=== PATIENT | female | born 1970 | race African-American/Black ===

== ENCOUNTER → 2016-11-18 | Emergency (ER) | payer OTHER ==
[~2016-11-18] VITALS: Ht 165.1 cm; Wt 59.0 kg
[~2016-11-18] MED LIST: Bacitracin Oint UD TOPIC ONE; IBUPROFEN400 MG ORAL; IBUPROFEN600 MG ORAL; KEFLEX500 MG ORAL; NKM; TdaP Vaccine 0.5ml Syr IM ONE
[2016-11-18 12:35] VITALS: BP 138/90
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
== END | disposition left against medical advice (07) ==
LOC: EDUNIT# 12:32 → EDBD 12:33 → EMR 13:00
DX: S61.411A Laceration without foreign body of right hand, initial encounter (principal); W50.0XXA Accidental hit or strike by another person, initial encounter; Y93.9 Activity, unspecified; Y99.9 Unspecified external cause status; Z53.21 Procedure and treatment not carried out due to patient leaving prior to being seen by health care provider
CPT/HCPCS: 99284

== ENCOUNTER 2018-12-29 09:47 | Emergency (ER) | payer MEDICAID, OTHER ==
[~2018-12-29] VITALS: Ht 160 cm; Wt 54.4 kg
[~2018-12-29 09:47] MED LIST changes: -Bacitracin Oint UD TOPIC ONE; -TdaP Vaccine 0.5ml Syr IM ONE
[2018-12-29 09:55] VITALS: BP 143/82
--- NOTE | 2018-12-29 09:56 | NUR ---
ED Nurse Note: Pt came in from the street due to runny nose x" a couple of days". Also requested for food. AOx4, VSS. Will cont to monitor.
--- NOTE | 2018-12-29 10:18 | Emergency Room Report ---
History of Present Illness General Chief Complaint: Upper Respiratory Illness Source: Patient Present Illness HPI The patient presents requesting food and a bath. She says she has not been eating because she has not been able to find food. This makes her feel weak. She denies other drugs. She also denies suicidal or homicidal ideation. She had some diarrhea last night but it resolved on its own. She denies any vomiting or abdominal pain. She is not coughing and she denies chest pain. She denies headaches. She is chronic right foot pain from a bunion deformity. This has not changed recently. Allergies: Coded Allergies: NO KNOWN ALLERGIES (Unverified Allergy, Unknown, 05/16/15) Patient History Past Medical History: see triage record Social History: Reports: smoking, drug use - thc; Denies: alcohol use - prior Social History Narrative homeless Now: No Reviewed Nursing Documentation: PMH: Agreed; PSxH: Agreed Nursing Documentation-PMH Past Medical History: No Stated History Physical Exam Vital Signs Date Time Temp Pulse Resp B/P (MAP) Pulse Ox O2 Delivery O2 Flow Rate FiO2 12/29/18 09:51 97.9 76 20 143/82 (102) 98 Room Air Medical Decision Making Homeless Attestation I, The treating physician Dr. Finn, have assessed and agree that patient is medically stable for discharge to an outpatient disposition. Diagnostic Impression: Primary Impression: Homelessness Additional Impression: Cocaine abuse ER Course Patient presents requesting food in a bath and referral for shelters. Based on her vital signs and her complaints and her physical exam there is no medical emergency at this time. Mainly it appears that she needs to have help with her social situation. We will provide her with food. I am uncertain whether we can provide her with a bath. Also she will need social work associate referral. Patient 8. She started escalating. She started asking for referrals to detox centers. Because of this a urinalysis was ordered. bunker worker discussed possible shelters. The patient refused and stated that she wanted to go to [place]. She was escalating but not suicidal or homicidal. She calmed with redirection. She stated that she did not want to wait and wanted to be discharged. There is no evidence of any medical or psychiatric emergency at this time. Urinalysis clear but tox positive for cocaine. The cocaine result came back after the patient had left. Laboratory Tests Test 12/29/18 11:07 Urine Color Pale yellow Urine Appearance Clear Urine pH 6.5 (4.5-8.0) Urine Specific [place] 1.015 (1.005-1.035) Urine Protein Negative (NEGATIVE) Urine Glucose (UA) Negative (NEGATIVE) Urine Ketones Negative (NEGATIVE) Urine Blood Negative (NEGATIVE) Urine Nitrite Negative (NEGATIVE) Urine Bilirubin Negative (NEGATIVE) Urine Urobilinogen Normal MG/DL (0.0-1.0) Urine Leukocyte Esterase Negative (NEGATIVE) Urine Opiates Screen Negative (NEGATIVE) Urine Barbiturates Screen Negative (NEGATIVE) Phencyclidine (PCP) Screen Negative (NEGATIVE) Urine Amphetamines Screen Negative (NEGATIVE) Urine Benzodiazepines Screen Negative (NEGATIVE) Urine Cocaine Screen Positive (NEGATIVE) H Urine Marijuana (THC) Screen Negative (NEGATIVE) Last Vital Signs Date Time Temp Pulse Resp B/P (MAP) Pulse Ox O2 Delivery O2 Flow Rate FiO2 12/29/18 11:40 97.9 76 20 132/75 98 Room Air Status: improved Disposition: HOME, SELF-CARE Condition: Stable Ayush Finn MD Dec 29, 2018 10:18
--- NOTE | 2018-12-29 10:37 | NUR ---
ED Nurse Note: patient was given sandwiches, juices and water.
--- NOTE | 2018-12-29 10:48 | NUR ---
ED Nurse Note: contacted social work coordinator and spoke with Tracey that patient refuses to go to one snf that RN was able to find for her amongs 14 shelters that were contacted, [facility] [place] [phone], spoke with Yani. per Tracey, social work coordinator, she is going to come down to help.
[2018-12-29 11:15] LABS: APPEARANCE,URINE CLEAR; BILIRUBIN, URINE NEGATIVE (NEGATIVE); COLOR,URINE PALE YELLOW; GLUCOSE, URINE (UA) NEGATIVE (NEGATIVE); KETONES,URINE NEGATIVE (NEGATIVE); LEUKOCYTE ESTERASE ,URINE NEGATIVE (NEGATIVE); NITRITE,URINE NEGATIVE (NEGATIVE); PH,URINE 6.5 (4.5-8.0); PROTEIN,URINE NEGATIVE (NEGATIVE); UROBILINOGEN,URINE NORMAL MG/DL (0.0-1.0)
--- NOTE | 2018-12-29 11:36 | NUR ---
ED Nurse Note: WELT INSOLE CHANNELER SPEAKING TO THE PATIENT
[2018-12-29 11:40] VITALS: BP 132/75
--- NOTE | 2018-12-29 11:40 | NUR ---
Social Service Note SW met with patient to assess for resources as patient is noted to be homeless. Patient is alert, oriented and verbally responsive. Patient was requesting permanent housing or a drug treatment program. SW assessed for income, patient states she only receives GR/Food stamps and everything is gone this month. SW discussed that nursing located an available bed at a detention for tomorrow, but at this time patient will need to either go to a tile picker location or wait in line for a detention bed. Patient states she doesn't want detention placement. Patient then inquired about drug rehab. Patient wouldn't disclose drug of choice, frequency or route of administration. SW discussed due to patient only having straight medi-barbara options were limited and may require a wait list. SW discussed and provided the resources of [facility] and the [facility] substance use treatment services. SW also discussed the [facility]. Patient began to get agiated and stated just to computer sciences professor her the resources and didn't want to talk anymore. Patient requested bus tokens and an additional meal. Patient refused to answer any further questions, didn't want to discuss other community resources and kept stating she needed to leave. DEJUAN discussed with primary nurse.
--- NOTE | 2018-12-29 11:48 | NUR ---
Homeless Discharge: Patient is being discharged from medical care. Awake, alert and oriented x3. After care instructions, including referral to community resources were given. Patient verbalized understanding of After care instructions; at this time patient does not request medications, equipment or placement. Patient signed patient consent in the medical record for patient destination upon discharge. All medical devices such as ID band were removed. Patient ambulated out with all personal belongings with steady gait. Patient was seen by the social services designee but was adamant on leaving [facility], patient refused bus tokens. patient ambulated to cafeteria and states that she does not want the extra sandwiches. patient refused to let staff know what the patient's plans were
== END 2018-12-29 11:40 | disposition home or self-care (01) ==
LOC: EMR 10:26
DX: F14.10 Cocaine abuse, uncomplicated (principal); Z59.0 Homelessness; F17.200 Nicotine dependence, unspecified, uncomplicated; M21.611 Bunion of right foot
CPT/HCPCS: 80307; 81003; 99283

== ENCOUNTER 2019-03-16 03:17 | Emergency (ER) | payer MEDICAID ==
[~2019-03-16] VITALS: Ht 162.6 cm; Wt 52.2 kg
[2019-03-16 03:20] VITALS: BP 121/81
--- NOTE | 2019-03-16 03:37 | NUR ---
ED Nurse Note: Patient bibcece RA 861 c/o pain priarily in her right toe, ptients toe is deformed however states that this has been an on going issue for a while. states that she has been walking alot. patient was just seen at [facility] this morning and currently has an armband from it. patient o2 sat at 100%. patient is alert and oriented x4
--- NOTE | 2019-03-16 03:47 | Emergency Room Report ---
History of Present Illness General Chief Complaint: Pain Source: Patient, Medical Record Present Illness HPI This is a 48-year-old male who is homeless. She presents with multiple complaints. She called 911 near [facility]. She was there today. She came in initially complaining of feet pain. She complained of back pain and neck pain. Ultimately, I asked if she is want a place to sleep and she said yes. She is been here several times for the same thing. She has a history of cocaine abuse. No trauma. No fever chills but denies any other complaint. Allergies: Coded Allergies: NO KNOWN ALLERGIES (Unverified Allergy, Unknown, 05/16/15) Patient History Past Medical History: see triage record, old chart reviewed Pertinent Family History: none Social History: Reports: drug use Now: No Immunizations: other Reviewed Nursing Documentation: PMH: Agreed; PSxH: Agreed Nursing Documentation-PMH Past Medical History: No History, Except For Hx Asthma: Yes History Of Psychiatric Problem: Yes Review of Systems Eye: Denies: eye pain, blurred vision ENT: Denies: ear pain, nose congestion, throat swelling Respiratory: Denies: cough, shortness of breath Cardiovascular: Denies: chest pain, palpitations Gastrointestinal: Denies: abdominal pain, diarrhea, nausea, vomiting Musculoskeletal: Denies: back pain, joint pain Skin: Denies: rash Neurological: Denies: headache, numbness Endocrine: Denies: increased thirst, increased urine Hematologic/Lymphatic: Denies: easy bruising All Other Systems: negative except mentioned in HPI Physical Exam Vital Signs Date Time Temp Pulse Resp B/P (MAP) Pulse Ox O2 Delivery O2 Flow Rate FiO2 03/16/19 03:17 97.5 103 18 121/81 (94) 99 Room Air Vitals normal Sp02 EP Interpretation: reviewed, normal General Appearance: well appearing, no apparent distress, alert Head: normocephalic, atraumatic Eyes: bilateral eye PERRL, bilateral eye EOMI ENT: hearing grossly normal, normal pharynx Neck: full range of motion, supple, no meningismus Respiratory: chest non-tender, lungs clear, normal breath sounds Cardiovascular #1: regular rate, rhythm, no murmur Gastrointestinal: normal bowel sounds, non tender, no mass, no organomegaly, no bruit, non-distended Musculoskeletal: back normal, gait/station normal, normal range of motion Psychiatric: mood/affect normal Medical Decision Making Diagnostic Impression: Primary Impression: Cocaine abuse Additional Impression: Pain ER Course Patient with multiple vague complaint. I suspect that she want a place to stay. She has an all been from [facility]. Also from [facility] assisted. No evidence of any trauma to warrant further work-up. Will discharge home in the morning. She says she does not want to go to assisted. She want to go to [place]. Last Vital Signs Date Time Temp Pulse Resp B/P (MAP) Pulse Ox O2 Delivery O2 Flow Rate FiO2 03/16/19 03:20 97.5 103 18 121/81 99 Room Air Status: improved Disposition: HOME, SELF-CARE Condition: Stable Additional Instructions: Follow-up with your doctor in 7 days. Return if worse. Phillip Lind MD Mar 16, 2019 03:47
--- NOTE | 2019-03-16 04:38 | NUR ---
ED Nurse Note: Patient sleeping calmy in bed
[2019-03-16 05:30] VITALS: BP 115/78
--- NOTE | 2019-03-16 05:30 | NUR ---
Homeless Discharge: Patient is being discharged from medical care. Awake, alert and oriented x3. After care instructions, including referral to community resources were given. Patient verbalized understanding of After care instructions; at this time patient does not request medications, equipment or placement. Patient refused to sign patient consent in the medical record for patient destination upon discharge. All medical devices such as IV and ID band were removed. Patient ambulated out with all personal belongings with steady gait.
--- NOTE | 2019-03-16 05:30 | NUR ---
Note meghan in ED - 03/16/19 at 0554 by RENNY Homeless Discharge: Patient is being discharged from medical care. Awake, alert and oriented x3. After care instructions, including referral to community resources were given. Patient verbalized understanding of After care instructions; at this time patient does not request medications, equipment or placement. Patient signed patient consent in the medical record for patient destination upon discharge. All medical devices such as ID band were removed. Patient ambulated out with all personal belongings with steady gait.
[2019-03-16] MEDS ORDERED: IBUPROFEN400 MG ORAL (09:36)
== END 2019-03-16 05:30 | disposition home or self-care (01) ==
LOC: EDBD 03:17 → EMR 04:17
DX: F14.10 Cocaine abuse, uncomplicated (principal); R52 Pain, unspecified; J45.909 Unspecified asthma, uncomplicated; Z59.0 Homelessness
CPT/HCPCS: 99282

== ENCOUNTER 2019-03-16 09:09 | Emergency (ER) | payer MEDICAID ==
[~2019-03-16] VITALS: Ht 160 cm; Wt 54.4 kg
--- NOTE | 2019-03-16 09:31 | NUR ---
ED Nurse Note: PT WALKED IN TO ER TODAY. PT WAS SEEN EARLIER TODAY AND DISCHARGED FROM ER. PT RETURNS WITH SAME COMPLAINT OF RIGHT FOOT PAIN EXACERBATED BY ACTIVITY. NO OBVIOUS INJURY NOTED. PT STATES SHE IS HOMELESS. PT DRESSED IN WEATHER APPROPRIATE CLOTHING. FOOD AND DRINK PROVIDED FOR PT. RESOURCES REGARDING SHELTERS AND FREE HEALTH CLINICS PROVIDED TO PT.
[2019-03-16] MEDS ORDERED: IBUPROFEN400 MG ORAL (09:36)
--- NOTE | 2019-03-16 09:41 | NUR ---
ED Nurse Note: PT SITTING PEACEFULLY IN BED IN NAD. AOX4. PRESCRIPTION AND DISCHARGE PAPERWORK EXPLAINED TO PT. PT VERBALIZES UNDERSTANDING AND ALL QUESTIONS ANSWERED. PRESCRIPTION OFFERED TO BE GIVEN TO PT. PT STATES, "I HAVE INSURANCE. I'LL GET IT MYSELF." PT RE-EDUCATED ON RESOURCES PROVIDED REGARDING MENTAL HEALTH CLINICS, FREE HEALTH CLINICS, AND SHELTERS. PT CONTINUES TO REFUSE TO DISCLOSE WHERE SHE WILL GO AFTER DISCHARGE. WATER PROVIDED FOR PT. PT GIVEN DISCHARGE PAPERWORK AND PRESCRIPTION. PT WALKED OUT OF ER WITH STEADY GAIT AND ALL BELONGINGS. BUS TOKENS PROVIDED TO PT ON HER EARLIER VISIT TO ER TODAY WHICH PT STILL HAS.
[2019-03-16 09:57] VITALS: BP 118/82
--- NOTE | 2019-03-16 17:43 | Emergency Room Report ---
History of Present Illness General Chief Complaint: Lower Extremity Injury Source: Patient Present Illness HPI Patient has a history of bunions on the right toe. Patient also has evidence of a callus patient. Pt states that she would like to have her bunion and callous removed. She denies any trauma. Symptoms noted to be mild. No other modifying factors. No other associated signs and symptoms. No other complaints were noted. Allergies: Coded Allergies: NO KNOWN ALLERGIES (Unverified Allergy, Unknown, 05/16/15) Patient History Past Medical History: psych hx Past Surgical History: none Pertinent Family History: none Social History: Denies: smoking, alcohol use, drug use Last Menstrual Period: na Reviewed Nursing Documentation: PMH: Agreed; PSxH: Agreed Nursing Documentation-PMH Past Medical History: No History, Except For Hx Asthma: Yes History Of Psychiatric Problem: Yes Review of Systems All Other Systems: negative except mentioned in HPI Physical Exam Vital Signs Date Time Temp Pulse Resp B/P (MAP) Pulse Ox O2 Delivery O2 Flow Rate FiO2 03/16/19 09:16 97.9 82 18 121/84 (96) 99 Room Air Sp02 EP Interpretation: reviewed, normal General Appearance: normal inspection, well appearing, no apparent distress, alert, other - Patient appears disheveled. Head: atraumatic Eyes: bilateral eye normal inspection ENT: normal ENT inspection, hearing grossly normal, normal voice Neck: normal inspection, full range of motion, supple, no bony tend Respiratory: normal inspection, lungs clear, normal breath sounds, no respiratory distress, no retraction, no wheezing Cardiovascular #1: regular rate, rhythm, no edema Gastrointestinal: non tender, soft Musculoskeletal: normal inspection, normal range of motion Neurologic: normal inspection, alert, responsive, speech normal Psychiatric: anxious, other - agressive Medical Decision Making Diagnostic Impression: Primary Impression: Bunion of great toe of right foot ER Course Patient presents to the emergency department today requesting bunion removal. Differential diagnosis include infection, bunion, callus. Exam is consistent with bunion and callus formation. I advised the patient that we do not do these repairs or removal in the emergency department. Patient was referred to outpatient family clinic. Patient was advised to follow-up outpatient as needed. Last Vital Signs Date Time Temp Pulse Resp B/P (MAP) Pulse Ox O2 Delivery O2 Flow Rate FiO2 03/16/19 09:57 98.1 76 18 118/82 98 Room Air Status: unchanged Disposition: HOME, SELF-CARE Condition: Stable Scripts Ibuprofen* (MOTRIN*) 400 Mg Tablet 400 MG ORAL Q8H, #20 TAB 0 Refills Prov: Ramo Graf MD 03/16/19 Referrals: NON PHYSICIAN Patient Instructions: Bunion (Hallux Valgus) Ramo Graf MD Mar 16, 2019 17:43
== END 2019-03-16 09:41 | disposition home or self-care (01) ==
LOC: EMR 09:40
DX: M21.611 Bunion of right foot (principal); J45.909 Unspecified asthma, uncomplicated; L84 Corns and callosities
CPT/HCPCS: 99282

== ENCOUNTER 2019-08-03 20:39 | Emergency (ER) | payer MEDICAID ==
[~2019-08-03] VITALS: Ht 160 cm; Wt 49.9 kg
--- NOTE | 2019-08-03 21:00 | NUR ---
ED Nurse Note: pt presents to ED via [facility] [address] with initial complaint of vomiting but she is eating while on the gurney stating that "food helps my arthritis." upon examination, pt states she is no longer feeling nauseated and denies pain anywhere. pt appears to be disheveled and yelling at staff but follows commands.
--- NOTE | 2019-08-03 21:05 | Emergency Room Report ---
History of Present Illness General Chief Complaint: Vomiting Source: Patient, EMS Present Illness HPI Patient is brought in by EMS. A security monitor at the store where she was camped out called them. Allegedly she was vomiting. Currently she is eating food and says that she has to eat. She denies any abdominal pain or vomiting at this time. The patient states that she needs to be hospitalized psychiatrically. She has not been taking her psychiatric medications which include Risperdal 5 mg twice a day and Benadryl for sleep. She denies suicidal or homicidal ideation. No fevers, chills, sore throat, chest pain, palpitations, diarrhea, dysuria, abdominal pain, shortness of breath, joint pain, visual changes, dizziness, headache. Smoker with occasional cough. Allergies: Coded Allergies: NO KNOWN ALLERGIES (Unverified Allergy, Unknown, 05/16/15) Patient History Past Medical History: see triage record Social History: Reports: smoking, drug use Social History Narrative From the streets Reviewed Nursing Documentation: PMH: Agreed; PSxH: Agreed Nursing Documentation-PMH Hx Asthma: Yes History Of Psychiatric Problem: Yes Review of Systems All Other Systems: negative except mentioned in HPI Physical Exam Vital Signs Date Time Temp Pulse Resp B/P (MAP) Pulse Ox O2 Delivery O2 Flow Rate FiO2 08/03/19 20:41 99.1 102 20 146/107 (120) 96 Room Air Sp02 EP Interpretation: reviewed, normal General Appearance: non-toxic, thin, other - Disheveled Head: normocephalic Eyes: bilateral eye PERRL, bilateral eye EOMI, bilateral eye Scleral Injection ENT: moist mucus membranes - poor dentition Neck: full range of motion Respiratory: lungs clear, normal breath sounds Cardiovascular #1: regular rate, rhythm Cardiovascular #2: 2+ radial (L) Gastrointestinal: non tender, soft, scaphoid Genitourinary: no CVA tenderness Musculoskeletal: gait/station normal Neurologic: alert, motor strength/tone normal, plastics 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 Finn, have assessed and agree that patient is medically stable for discharge to an outpatient disposition. Diagnostic Impression: Primary Impression: Cocaine abuse Additional Impression: Vomiting Qualified Codes: R11.10 - Vomiting, unspecified ER Course Patient presents with alleged vomiting by eating at this time. In addition she is requesting psychiatric evaluation. Differential includes gastroenteritis, gastritis, substance abuse, alcohol abuse, electrolyte imbalance, rhabdomyolysis , occult infection, exacerbation of underlying psychiatric illness and noncompliance amongst others. Evaluation with labs. The patient will be treated with Risperdal and Benadryl. Labs with normal WBC and CMP. Troponin and CK normal. + cocaine. Patient ambulated to bathroom for urine with limp. Sleeping. After sleeping and eating patient denies vomiting. Stable for outpatient observation and treatment. Laboratory Tests Test 08/03/19 21:18 08/04/19 00:18 White Blood Count 5.3 K/UL (4.8-10.8) Red Blood Count 3.85 M/UL (4.20-5.40) L Hemoglobin 11.4 G/DL (12.0-16.0) L Hematocrit 34.0 % (37.0-47.0) L Mean Corpuscular Volume 88 FL (80-99) Mean Corpuscular Hemoglobin 29.5 PG (27.0-31.0) Mean Corpuscular Hemoglobin Concent 33.5 G/DL (32.0-36.0) Red Cell Distribution Width 14.4 % (11.6-14.8) Platelet Count 413 K/UL (150-450) Mean Platelet Volume 5.6 FL (6.5-10.1) L Neutrophils (%) (Auto) 64.3 % (45.0-75.0) Lymphocytes (%) (Auto) 24.9 % (20.0-45.0) Monocytes (%) (Auto) 8.2 % (1.0-10.0) Eosinophils (%) (Auto) 1.5 % (0.0-3.0) Basophils (%) (Auto) 1.1 % (0.0-2.0) Sodium Level 144 MMOL/L (136-145) Potassium Level 4.0 MMOL/L (3.5-5.1) Chloride Level 107 MMOL/L (98-107) Carbon Dioxide Level 30 MMOL/L (21-32) Anion Gap 8 mmol/L (5-15) Blood Urea Nitrogen 19 mg/dL (7-18) H Creatinine 1.0 MG/DL (0.55-1.30) Estimate Glomerular Filtration Rate > 60 mL/min (>60) Glucose Level 126 MG/DL (74-106) H Calcium Level 8.4 MG/DL (8.5-10.1) L Total Bilirubin 0.3 MG/DL (0.2-1.0) Aspartate Amino Transferase (AST) 21 U/L (15-37) Alanine Aminotransferase (ALT) 23 U/L (12-78) Alkaline Phosphatase 106 U/L (46-116) Total Creatine Kinase 183 U/L (26-308) Troponin I 0.012 ng/mL (0.000-0.056) Total Protein 6.9 G/DL (6.4-8.2) Albumin 2.9 G/DL (3.4-5.0) L Globulin 4.0 g/dL Albumin/Globulin Ratio 0.7 (1.0-2.7) L Salicylates Level 0.9 ug/mL (2.8-20) L Acetaminophen Level < 2 MCG/ML (10-30) L Serum Alcohol < 3 mg/dL Urine Opiates Screen Negative (NEGATIVE) Urine Barbiturates Screen Negative (NEGATIVE) Phencyclidine (PCP) Screen Negative (NEGATIVE) Urine Amphetamines Screen Negative (NEGATIVE) Urine Benzodiazepines Screen Negative (NEGATIVE) Urine Cocaine Screen Positive (NEGATIVE) H Urine Marijuana (THC) Screen Negative (NEGATIVE) Last Vital Signs Date Time Temp Pulse Resp B/P (MAP) Pulse Ox O2 Delivery O2 Flow Rate FiO2 08/04/19 05:25 100 20 145/100 97 Room Air 08/04/19 01:00 99.1 Status: improved Disposition: HOME, SELF-CARE Condition: Improved Scripts Diphenhydramine Hcl* (BENADRYL*) 25 Mg Capsule 25 MG ORAL QHS PRN for Itching, #20 CAP 1 Refill Prov: Ayush Finn MD 08/04/19 Risperidone* (RISPERDAL*) 1 Mg Tablet 1 MG PO BID, #30 TAB 1 Refill Prov: Ayush Finn MD 08/04/19 Ayush Finn MD Aug 03, 2019 21:05
[2019-08-03 21:33] LABS: BASOPHILS % (AUTO) 1.1 % (0.0-2.0); EOSINOPHILS % (AUTO) 1.5 % (0.0-3.0); HEMOGLOBIN 11.4 G/DL (12.0-16.0); LYMPHOCYTES % (AUTO) 24.9 % (20.0-45.0); MEAN CORPUSCULAR VOLUME 88 FL (80-99); MONOCYTES % (AUTO) 8.2 % (1.0-10.0); NEUTROPHILS % (AUTO) 64.3 % (45.0-75.0); PLATELET COUNT 413 K/UL (150-450); RED BLOOD COUNT 3.85 M/UL (4.20-5.40); RED CELL DISTRIBUTION WIDTH 14.4 % (11.6-14.8); WHITE BLOOD COUNT 5.3 K/UL (4.8-10.8)
[2019-08-03 21:37] VITALS: BP 146/107
--- NOTE | 2019-08-03 21:45 | NUR ---
ED Nurse Note: pt is insisting on taking IV out, refusing to provide urine. ERMD notified
[2019-08-03 21:50] LABS: ANION GAP 8 mmol/L (5-15); BLOOD UREA NITROGEN 19 mg/dL (7-18); CALCIUM 8.4 MG/DL (8.5-10.1); CARBON DIOXIDE 30 MMOL/L (21-32); CHLORIDE 107 MMOL/L (98-107); SODIUM 144 MMOL/L (136-145)
[2019-08-03 21:55] LABS: ALANINE AMINOTRANSFERASE 23 U/L (12-78); ALBUMIN 2.9 G/DL (3.4-5.0); ALBUMIN/GLOBULIN RATIO 0.7 (1.0-2.7); ALKALINE PHOSPHATASE 106 U/L (46-116); ASPARTATE AMINO TRANSFERASE 21 U/L (15-37); BILIRUBIN,TOTAL 0.3 MG/DL (0.2-1.0); CREATINE KINASE 183 U/L (26-308)
--- NOTE | 2019-08-04 00:20 | NUR ---
ED Nurse Note: urine specimen obtained and sent down to lab.
[2019-08-04 01:00] VITALS: BP 145/100
--- NOTE | 2019-08-04 03:00 | NUR ---
ED Nurse Note: pt is sleeping in bed. has thrown all her garbage and waste onto the floor, belongings dispersed about the room. will continue to monitor and wait for orders from ERMD
[2019-08-04] MEDS ORDERED: RISPERDAL1 MG PO (03:54)
[2019-08-04] MEDS ORDERED: BENADRYL25 MG ORAL (03:54)
[2019-08-04 05:25] VITALS: BP 145/100
--- NOTE | 2019-08-04 05:25 | NUR ---
ER DISCHARGE NOTE: Patient is cleared to be discharged per ERMD, pt is aox4, on room air, with stable vital signs. pt was given dc instructions, pt was able to verbalize understanding, pt id band removed without complications. pt is able to ambulate with steady gait. pt took all belongings.
== END 2019-08-04 05:25 | disposition home or self-care (01) ==
LOC: EDUNIT# 20:39 → EDSEX 20:39 → EDBD 20:39 → EMR 21:20
DX: F14.10 Cocaine abuse, uncomplicated (principal); R11.10 Vomiting, unspecified; F17.200 Nicotine dependence, unspecified, uncomplicated
CPT/HCPCS: 36415; 80053; 80307; 82550; 84484; 85025; G0480; G0481; Z7502; 99283

== ENCOUNTER 2019-08-30 06:30 | Emergency (ER) | payer MEDICAID ==
[~2019-08-30] VITALS: Ht 157.5 cm; Wt 49.9 kg
[~2019-08-30 06:30] MED LIST changes: +BENADRYL25 MG ORAL; +RISPERDAL1 MG PO
--- NOTE | 2019-08-30 06:32 | NUR ---
ED Nurse Note: pt presents to ED via EMS arrival RA 26 from [employer]. per EMS, pt states that she fell at [employer] today and hit her L knee. 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
--- NOTE | 2019-08-30 06:33 | NUR ---
ED Nurse Note: upon inspection, the skin is intact and there are no obvious deformities
--- NOTE | 2019-08-30 06:36 | Emergency Room Report ---
History of Present Illness General Chief Complaint: Lower Extremity Injury Source: Patient, EMS Present Illness HPI Disclaimer: Please note that this report is being documented using DRAGON technology. This can lead to erroneous entry secondary to incorrect interpretation by the dictating instrument. HPI: 48-year-old female presents by EMS for evaluation for left knee pain after an injury. The patient states she was walking in the left knee buckled as it usually does when she lost her balance and fell forward onto her patella. There is no skin breakdown. There is no head injury or other injury reported. Stated hurts over the lateral aspect. Denies significant swelling. Denies pain radiating down the leg, weakness or sensory changes. Has not tried to ambulate. PMH: Schizophrenia, substance abuse PSH: Bunionectomy Allergies: None reported Social Hx: Substance abuse history, tobacco use Allergies: Coded Allergies: NO KNOWN ALLERGIES (Unverified Allergy, Unknown, 05/16/15) Patient History Now: No Nursing Documentation-PMH Hx Asthma: Yes Review of Systems All Other Systems: negative except mentioned in HPI Physical Exam Vital Signs Date Time Temp Pulse Resp B/P (MAP) Pulse Ox O2 Delivery O2 Flow Rate FiO2 08/30/19 06:29 98.8 80 14 140/90 (107) 98 Room Air General: Awake and alert, no acute distress HEENT: NC/AT. EOMI. Resp: Normal work of breathing Skin: Intact. No abrasions, laceration or rash over the exposed skin MSK: Normal tone and bulk. Moving all extremities. No obvious deformity. Left patella is anatomic position. No tenderness over the patella. No laxity on varus or valgus testing or with AP stress. Mild tenderness over the lateral aspect of the knee without bony deformity. Skin is intact. Able to extend, flex and bear weight. Neuro: Awake and alert. Mentating appropriately Medical Decision Making Diagnostic Impression: Primary Impression: Contusion of left knee ER Course This a 48-year-old female presenting for evaluation of left knee pain after fall earlier today. There is no head injury. There is some tenderness over the lateral aspect of the knee without obvious effusion, edema or bony injury. Will order x-ray and treat with NSAIDs. Other X-Ray Diagnostic Results Other X-Ray Diagnostic Results : X-Ray ordered: Left knee # of Views/Limited Vs Complete: 3 View Indication: Pain EP Interpretation: Yes Interpretation: no dislocation, no soft tissue swelling, no fractures Impression: No acute disease PA Scribe Text Preliminary Findings Only See Final Report For Complete Findings FILM LEFT KNEE: Joint space narrowing in all 3 compartments with marginal osteophytes. No acute fracture or dislocation. Radiologist: Ayush Petit M.D. Study ready at 06:53 and initial results transmitted at 07:20 Reevaluation Time: 07:29 Last Vital Signs Date Time Temp Pulse Resp B/P (MAP) Pulse Ox O2 Delivery O2 Flow Rate FiO2 08/30/19 06:29 98.8 80 14 140/90 (107) 98 Room Air Reevaluation Impression X-ray of the knee showed possible lucency and cortical irregularity over the lateral aspect however interpretation by radiologist finds no acute fracture. They know must multiple osteophytes and some degenerative disease. Patient's knee was placed in an Emeka bandage for comfort and stability. Prescribed Motrin and follow-up with orthopedic surgery as needed as well as PMD/clinic. Patient can return with any new or worsening symptoms. Upon discharge she requested to speak with social work. We will call them for the patient. She may wait in the emergency department until they arrive. Disposition: HOME, SELF-CARE Condition: Stable Scripts Ibuprofen* (MOTRIN*) 600 Mg Tablet 600 MG ORAL Q8H PRN for For Pain, #30 TAB 0 Refills Prov: Wesley Rey MD 08/30/19 Wesley Rey MD Aug 30, 2019 06:36
[2019-08-30] MEDS ORDERED: IBUPROFEN600 MG ORAL (06:39)
--- NOTE | 2019-08-30 07:21 | Diagnostic Imaging Report ---
Indication: Left knee trauma, twisted left knee crossing street Technique: 3 views of the left knee Comparison: None Findings: No acute fractures. No dislocations. There is narrowing of the lateral joint compartment. There is also narrowing of the patellofemoral joint compartment. No definite effusion. Impression: No acute process This agrees with the preliminary interpretation provided overnight by [facility].
--- NOTE | 2019-08-30 07:35 | NUR ---
ED Nurse Note: Dr Rey notified that pt wants to wait for social media developer and that she will arrive around 0900. states ok to have pt in ER to wait.
[2019-08-30 09:37] VITALS: BP 132/78
--- NOTE | 2019-08-30 10:07 | NUR ---
Social Work This Sw received a consult in the ED, due to patient requesting to speak with a Computer Recycling Worker. This SW met with patient who continues to sleep, refusing to sit up and speak with this SW. Homeless and substance abuse resources provided; nursing to arrange transportation as needed. ED Nursing informed.
[2019-08-30 10:11] VITALS: BP 125/72
--- NOTE | 2019-08-30 10:11 | NUR ---
ER DISCHARGE NOTE: Patient is cleared to be discharged per ERMD, pt is aox4, on room air, with stable vital signs. pt was given dc and prescription instructions, pt was able to verbalize understanding, pt id band removed. pt is able to ambulate with steady gait. pt took all belongings. Pt offered to get meds from [facility] but refused. Homeless log and mini cog completed.
== END 2019-08-30 10:11 | disposition home or self-care (01) ==
LOC: EDBD 06:30 → EMR 06:43
DX: S80.02XA Contusion of left knee, initial encounter (principal); W19.XXXA Unspecified fall, initial encounter; Y92.9 Unspecified place or not applicable
CPT/HCPCS: 73562; Z7502; 99283

== ENCOUNTER 2019-12-13 23:30 | Emergency (ER) | payer MEDICAID ==
[~2019-12-13] VITALS: Ht 157.5 cm; Wt 49.9 kg
--- NOTE | 2019-12-13 23:47 | NUR ---
ED Nurse Note: Pt brought in by RA Handy from [facility], pt lives in her car, called 911 due to abdominal pain. PT is A&Ox2, VSS, resistive to care. will continue to monitor
[2019-12-13 23:49] VITALS: BP 142/94
--- NOTE | 2019-12-13 23:57 | Emergency Room Report ---
History of Present Illness General Chief Complaint: Abdominal Pain Source: Patient, Medical Record Present Illness HPI Is a 49-year-old female who is homeless with a history of cocaine abuse. She presents with chief complaint abdominal pain with nausea vomiting and diarrhea. Onset for last couple days. Also with urinary frequency. Pain is cramping in nature. Worse with eating. Better with rest. No fever chills. No blood in her vomitus or diarrhea. Denies any other complaint. Allergies: Coded Allergies: NO KNOWN ALLERGIES (Unverified Allergy, Unknown, 05/16/15) COVID-19 Screening Contact w/high risk pt: No Recent Travel to affected area: No Experienced COVID-19 symptoms?: No COVID-19 Testing performed FIGURE SKATER: No Patient History Past Medical History: see triage record, old chart reviewed Past Surgical History: other Pertinent Family History: none Social History: Reports: drug use Last Menstrual Period: na Now: No Immunizations: other Reviewed Nursing Documentation: PMH: Agreed; PSxH: Agreed Nursing Documentation-PMH Past Medical History: No History, Except For Hx Asthma: Yes Review of Systems Eye: Denies: eye pain, blurred vision ENT: Denies: ear pain, nose congestion, throat swelling Respiratory: Denies: cough, shortness of breath Cardiovascular: Denies: chest pain, palpitations Gastrointestinal: Reports: abdominal pain, diarrhea, nausea, vomiting Musculoskeletal: Denies: back pain, joint pain Skin: Denies: rash Neurological: Denies: headache, numbness Endocrine: Denies: increased thirst, increased urine Hematologic/Lymphatic: Denies: easy bruising All Other Systems: negative except mentioned in HPI Physical Exam Vital Signs Date Time Temp Pulse Resp B/P (MAP) Pulse Ox O2 Delivery O2 Flow Rate FiO2 12/13/19 23:33 98.4 80 18 142/94 (110) 99 Room Air Vitals normal Sp02 EP Interpretation: reviewed, normal General Appearance: well appearing, no apparent distress, alert Head: normocephalic, atraumatic Eyes: bilateral eye PERRL, bilateral eye EOMI ENT: hearing grossly normal, normal pharynx Neck: full range of motion, supple, no meningismus Respiratory: chest non-tender, lungs clear, normal breath sounds Cardiovascular #1: regular rate, rhythm, no murmur Gastrointestinal: non tender, no mass, no organomegaly, no bruit, non-distended , abnormal bowel sounds - Hyperactive Musculoskeletal: back normal, normal range of motion, gait/station normal Psychiatric: mood/affect normal Medical Decision Making Diagnostic Impression: Primary Impression: Abdominal pain Qualified Codes: R10.84 - Generalized abdominal pain Additional Impression: Cocaine abuse ER Course Patient presents with chief complaint of abdominal pain. She claimed that she had vomiting and diarrhea but she ate and drink here without any problem. Promptly after which she fell asleep for several hours. She refused to give a urine sample. Now she is awake and walk to the bathroom without any difficulty. She does admit to using cocaine. I see no evidence of an acute abdomen. Will discharge home. Patient does not want to go to senior care. Last Vital Signs Date Time Temp Pulse Resp B/P (MAP) Pulse Ox O2 Delivery O2 Flow Rate FiO2 12/13/19 23:49 98.4 80 18 142/94 99 Room Air Status: improved Disposition: HOME, SELF-CARE Condition: Stable Patient Instructions: Abdominal Pain, Adult Additional Instructions: Stop using drugs. Follow-up with your doctor in 7 days. Return if worse. Phillip Lind MD Dec 13, 2019 23:57
--- NOTE | 2019-12-14 02:30 | NUR ---
ED Nurse Note: Pt resting in bed with eyes closed, non-labored breathing, no signs of distress. will continue to monitor
[2019-12-14 03:00] VITALS: BP 138/80
[2019-12-14 05:30] VITALS: BP 138/80
--- NOTE | 2019-12-14 05:30 | NUR ---
ER DISCHARGE NOTE: Patient is cleared to be discharged per ERMD, pt is aox4, on room air, with stable vital signs. pt was given dc and prescription instructions, pt was able to verbalize understanding, pt id band removed. pt is able to ambulate with steady gait. pt took all belongings.
== END 2019-12-14 05:30 | disposition home or self-care (01) ==
LOC: EDBD 23:30 → EMR 23:55
DX: R10.84 Generalized abdominal pain (principal); F14.10 Cocaine abuse, uncomplicated; R19.7 Diarrhea, unspecified; R11.2 Nausea with vomiting, unspecified
CPT/HCPCS: 99282

== ENCOUNTER 2020-02-22 12:12 | Emergency (ER) | payer MEDICAID ==
[~2020-02-22] VITALS: Ht 157.5 cm; Wt 49.9 kg
--- NOTE | 2020-02-22 12:30 | NUR ---
ED Nurse Note: Patient not found in waiting room.
--- NOTE | 2020-02-22 12:44 | NUR ---
Note meghan in EDM - 02/22/20 at 1254 by MANUEL ED Nurse Note: Pt ambulated to ed c/o low back pain, lower abdominal pain, burnging while urination with foul smell x 1 week. pt denies n/v/d. pt in restroom obtaining urine sample
--- NOTE | 2020-02-22 13:37 | NUR ---
ED Nurse Note: Moved patient to OB from waiting room. Report given to CHRISTA Kim.
--- NOTE | 2020-02-22 13:37 | NUR ---
Elkin christianson in EDM - 02/22/20 at 1348 by GUILLAUME ED Nurse Note: Moved patient to OB from waiting room. Report given to CHRISTA Kim.
[2020-02-22 13:41] VITALS: BP 108/78
--- NOTE | 2020-02-22 13:41 | NUR ---
ED Nurse Note: Pt was wheeled into ER c/o right toe rash for few days. pt appears sleepy and irritable.
--- NOTE | 2020-02-22 13:45 | Emergency Room Report ---
History of Present Illness General Chief Complaint: Skin Rash/Abscess Source: Medical Record Present Illness HPI 49 YO Female presents to the ED requesting application of bandage/dressing to her right great toe. There is a bunion and callous there with an open abrasion. Pt. is agitated. She is demanding Food and drinks as well. Pt. does not know when her last tetanus vaccination was. Pt. reports 5/10 in severity pain. She denies new trauma or fall. She reports pain is exacerbated with walking. She reports loose stool x 2 days. reports two stools per day. Denies blood. Denies recent abx use. Denies abdominal pain. HPI and ROS are limited due to pt. poorly cooperative and refuses help other than dressing change and food/drinks. Allergies: Coded Allergies: NO KNOWN ALLERGIES (Unverified Allergy, Unknown, 05/16/15) COVID-19 Screening Contact w/high risk pt: No Recent Travel to affected area: No Experienced COVID-19 symptoms?: Yes COVID-19 Testing performed CHEMICAL DEPENDENCY THERAPIST: No Patient History Past Medical History: see triage record Past Surgical History: none Pertinent Family History: none Now: No Reviewed Nursing Documentation: PMH: Agreed; PSxH: Agreed Nursing Documentation-PMH Past Medical History: No History, Except For Hx Asthma: Yes Review of Systems All Other Systems: negative except mentioned in HPI Physical Exam Vital Signs Date Time Temp Pulse Resp B/P (MAP) Pulse Ox O2 Delivery O2 Flow Rate FiO2 02/22/20 12:55 97.9 76 16 108/78 (88) 99 Room Air Sp02 EP Interpretation: reviewed, normal General Appearance: no apparent distress, alert, GCS 15, non-toxic Head: normocephalic, atraumatic Eyes: bilateral eye normal inspection, bilateral eye PERRL ENT: hearing grossly normal, normal voice Neck: full range of motion Respiratory: lungs clear, normal breath sounds, speaking full sentences Cardiovascular #1: regular rate, rhythm, no edema, normal capillary refill Gastrointestinal: normal bowel sounds, non tender, soft, non-distended, no guarding Musculoskeletal: back normal, normal range of motion, gait/station normal - Compensated favoring the right foot, tender - to the right first metatarsal. some erythema and swelling noted. Severe hallux valgus deformity. Neurologic: alert, motor strength/tone normal, oriented x3, sensory intact, responsive, speech normal Psychiatric: judgement/insight normal Skin: other - erythema and some warmth about the right first metatarsal with some swelling noted as well as superficial abrasion with some light interstitial fluid. Medical Decision Making PA Attestation Dr. Rogers Is my supervising Physician whom patient management has been discussed with. Diagnostic Impression: Primary Impression: Bunion of great toe of right foot Additional Impression: Cellulitis Qualified Codes: L03.115 - Cellulitis of right lower limb ER Course 49 YO Female presents to the ED requesting application of bandage/dressing to her right great toe. There is a bunion and callous there with an open abrasion. Pt. is agitated. She is demanding Food and drinks as well. Pt. does not know when her last tetanus vaccination was. Pt. reports 5/10 in severity pain. She denies new trauma or fall. She reports pain is exacerbated with walking. She reports loose stool x 2 days. reports two stools per day. Denies blood. Denies recent abx use. Denies abdominal pain. HPI and ROS are limited due to pt. poorly cooperative and refuses help other than dressing change and food/drinks. Ddx considered but are not limited to cellulitis, Necrotizing fasciitis, allergic reaction, burn, dermatitis, fracture, d/L, gout, paronychia, eponychia, ingrown toe nail, bunion, callus, cocaine abuse, homelessness just to name a few Vital signs: are WNL, pt. is afebrile H&PE are most consistent with agitated patient who is mostly concerned with receiving food and drinks and is demanding just bandaged change. ORDERS: none required at this time, the diagnosis is clinical ED INTERVENTIONS: -Wound Care- by RN - Bacitracin ordered for dressing. -Tdap vaccination -Keflex PO -Bentyl PT. threw one of the pills and cup of water at the nurse- demanding a sandwich first. --D/w pt. that she will receive meal after completion of her ED visit. Already d /w pt. that she will be discharged. DISCHARGE: At this time pt. is stable for d/c to home. Will provide printed patient care instructions, and any necessary prescriptions. Care plan and follow up instructions have been discussed with the patient prior to discharge. Last Vital Signs Date Time Temp Pulse Resp B/P (MAP) Pulse Ox O2 Delivery O2 Flow Rate FiO2 02/22/20 13:41 97.9 74 16 108/78 99 Room Air Disposition: HOME, SELF-CARE Condition: Stable Scripts Cephalexin* (KEFLEX*) 500 Mg Capsule 500 MG ORAL EVERY 12 HOURS for 7 Days, #14 CAP 0 Refills Prov: Alana Beard 02/22/20 Dicyclomine Hcl* (DICYCLOMINE HCL*) 10 Mg Capsule 10 MG ORAL TID for 1 Day, #3 CAP Prov: Alana Baerd 02/22/20 Cephalexin* (KEFLEX*) 500 Mg Capsule 500 MG ORAL EVERY 12 HOURS for 7 Days, #14 CAP 0 Refills Prov: Alana Beard 02/22/20 Referrals: [facility] + [facility] Patient Instructions: Bunion (Hallux Valgus), Cellulitis, [id number], Food Choices to Help Relieve Diarrhea, Adult Additional Instructions: Take medications as directed. Follow up with a Primary Care Provider in 3-5 days, even if your symptoms have resolved. --Please review list of primary care clinics, if you do not already have a primary care provider Return sooner to ED if new symptoms occur, or current symptoms become worse. - Please note that this Emergency Department Report was dictated using [employer]eladrill hand technology software, occasionally this can lead to erroneous entry secondary to interpretation by the dictation equipment. Alana Beard Feb 22, 2020 13:45
--- NOTE | 2020-02-22 13:47 | NUR ---
ED Nurse Note: Moved patient to OB from waiting room. Report given to CHRISTA Kim
[2020-02-22] MEDS ORDERED: Cephalexin 500mg cap ONE (13:53)
[2020-02-22] MEDS ORDERED: CEPHALEXIN500 MG ORAL (13:58)
[2020-02-22] MEDS ORDERED: DICYCLOMINE HCL10 MG ORAL (13:58)
[2020-02-22] MEDS ORDERED: Tetanus/Diptheria/Pertussis IM ONE (14:00)
[2020-02-22] MEDS ORDERED: Dicyclomine 10mg Cap ORAL ONE (14:00)
[2020-02-22] MEDS ORDERED: Bacitracin Oint UD TOPIC ONE (14:00)
[2020-02-22] MEDS ORDERED: Cephalexin 500mg cap ORAL ONE (14:00)
--- NOTE | 2020-02-22 14:18 | NUR ---
\ER DISCHARGE NOTE: Patient is cleared to be discharged per ERMD, pt is aox4, on room air, with stable vital signs. pt was given dc and prescription instructions, pt was able to verbalize understanding, pt id bandremoved. pt is able to ambulate with steady gait. pt took all belongings. Pt given socks, shoes, and meal.
[2020-02-22 14:19] VITALS: BP 110/82
== END 2020-02-22 14:18 | disposition home or self-care (01) ==
LOC: EMR 13:32
DX: M21.611 Bunion of right foot (principal); L03.115 Cellulitis of right lower limb; R45.1 Restlessness and agitation; S90.411A Abrasion, right great toe, initial encounter; X58.XXXA Exposure to other specified factors, initial encounter; Y92.9 Unspecified place or not applicable; Z23 Encounter for immunization
CPT/HCPCS: 90471; 90715; Z7502; 99282

== ENCOUNTER 2020-03-07 12:26 | Emergency (ER) | payer MEDICAID ==
[~2020-03-07] VITALS: Ht 162.6 cm; Wt 59.0 kg
[2020-03-07 12:26] VITALS: BP 126/82
[~2020-03-07 12:26] MED LIST changes: +CEPHALEXIN500 MG ORAL; +DICYCLOMINE HCL10 MG ORAL
[2020-03-07] MEDS ORDERED: Acetaminophen 500mg (ES) tab ORAL ONE (12:45)
[2020-03-07] MEDS ORDERED: Naloxone 1mg/ml 2ml IM ONE (13:00)
[2020-03-07] MEDS ORDERED: IBUPROFEN600 M1 ORAL (13:40)
--- NOTE | 2020-03-07 13:41 | Emergency Room Report ---
History of Present Illness General Chief Complaint: General Complaint Source: Patient Present Illness HPI 49-year-old -[place] female with osteoarthritis presents ambulance with complaint of atraumatic bilateral plantar foot pain from walking. Duration 11 days Denies trauma, fall, swelling, rash, laceration. Patient is homeless so states she has been walking on her feet a lot Denies fever, chills, nausea, vomiting, diarrhea, leg swelling, chest pain, shortness of breath, weakness, vision changes, neck pain, shortness of breath, melena, hematochezia or any other symptoms. She is stating "give me cookies, give me a sandwich, give me milk and thats all I will let you do" The patient's symptoms were gradual onset, severity was moderate, duration since 11 days. Quality: Aching Past medical history: Osteoarthritis Past surgical history: Denies Smoking: Positive Alcohol use: Denies Drug use: Positive Review of systems: CONST: No fevers or chills, No night sweats PULMONARY: No productive cough, No shortness of breath CARDIAC: No chest pain, No palpitations GI: No vomiting, No diarrhea , No melena_or_BRBPR : No dysuria, No hematuria, No discharge NEURO: No new_focal_weakness_or_numbness, No confusion, No vision changes 14 point Review of Systems is otherwise negative except per HPI Physical Exam: GENERAL: Awake_alert_ nontoxic, no acute distress Spo2 94% on RA -normal EYES: Extraocular muscles are intact. Conjunctivae clear. Lids without swelling Pinpoint pupils. No nystagmus. ENT: External nose and ear normal_in_appearance. Oropharynx clear. Head_ atraumatic, Moist_oral_mucosa NECK: No JVD. No meningismus. No thyromegaly. Supple. Trachea midline RESP: Normal respiratory effort. Symmetric rise. No stridor. Clear_to_ auscultation_No_rales_No_wheezes CARDIAC: Regular rate and regular rhytm. No_significant pedal edema. ABDOMEN: Soft. Nondistended. Nontender_No_rebound_or_guarding. MSK: Normal muscle tone, without rigidity. Extremities without asymmetric deformity or swelling. Feet are both dirty with bunions in bilateral LE. No swelling SKIN: Warm and dry. No visible cyanosis or pallor NEUROLOGIC: Alert, oriented x3. Motor_and_sensation_grossly_intact. No truncal ataxia. Gait_normal Psych: Normal mood and affect, normal judgment and insight - COORDINATION OF CARE Case was discussed with: Patient Medical Decision Making/Plan: Patient was initially noted to have pinpoint pupils. Narcan 1mg IM was given because she was poorly cooperative with exam. She woke up and became angry. She is now refusing everything, just stating "Bring me crackers. I want cookies and milk! Bring me a sandwich. I don't want nothing else from you!" She was offered medications, treatment, and CT, but declined everything. She was GCS 15. Neuro intact. ANO x3 on exam. She initially complained of foot pain from walking too much, however when I went to examine her, she states that she no longer has any pain. No visible cellulitis, joint swelling. There is chronic deformity/bunion. No laceration. no sign of compartment syndrome. She was given Tylenol in the ED. I consulted social work to provide her resources for homeless long-term but she declines them. She walked out of ER prior to them seeing her. I educated the patient on the current treatment plan including the risks, benefits, and alternatives. I also discussed the extent and limitations of the current evaluation. The patient expressed understanding and agreement with plan. I recommended PMD follow-up within 1-2 days. Also advised that the patient return to the Emergency Department as soon as possible if they experience any new, persistent, or worsening symptoms. Patient is discharged in stable condition Allergies: Coded Allergies: NO KNOWN ALLERGIES (Unverified Allergy, Unknown, 05/16/15) COVID-19 Screening Contact w/high risk pt: No Recent Travel to affected area: No Experienced COVID-19 symptoms?: No COVID-19 Testing performed TRUST MANAGER: No Nursing Documentation-PMH Hx Asthma: Yes Physical Exam Vital Signs Date Time Temp Pulse Resp B/P (MAP) Pulse Ox O2 Delivery O2 Flow Rate FiO2 03/07/20 12:23 98.1 78 18 126/82 (97) 98 Room Air Sp02 EP Interpretation: reviewed, normal Medical Decision Making Diagnostic Impression: Primary Impression: Foot pain, left Additional Impressions: Foot pain, right Bunion of great toe of right foot Homelessness Last Vital Signs Date Time Temp Pulse Resp B/P (MAP) Pulse Ox O2 Delivery O2 Flow Rate FiO2 03/07/20 12:26 98.1 78 18 126/82 98 Room Air Disposition: HOME, SELF-CARE Admit Decision Time: 13:40 Condition: Stable Scripts Ibuprofen* (MOTRIN*) 600 Mg Tablet 600 MG ORAL FOUR TIMES A DAY, #30 TAB 0 Refills Prov: Vaishnavi Son D.O. 03/07/20 Patient Instructions: Bunion (Hallux Valgus), Foot Contusion Additional Instructions: Instructions for patient/manager party: Follow up with your physician in 1-2 days. Follow-up with your doctor sooner if your condition requires a more timely clinical reevaluation. Return to the emergency department immediately if you feel that your condition is worsening or if you have any new or concerning symptoms. Review your discharge instructions and take any prescriptions given as instructed. Vaishnavi Son D.O. Mar 07, 2020 13:40
[2020-03-07 13:47] VITALS: BP 122/74
== END 2020-03-07 13:47 | disposition home or self-care (01) ==
LOC: EDBD 12:26 → EMR 13:25
DX: M25.572 Pain in left ankle and joints of left foot (principal); M25.571 Pain in right ankle and joints of right foot; M21.611 Bunion of right foot; Z59.0 Homelessness
CPT/HCPCS: 93005; 96372; J2310; Z7502; 99283

== ENCOUNTER 2020-06-04 12:39 | Emergency (ER) | payer MEDICAID ==
[~2020-06-04] VITALS: Ht 167.6 cm; Wt 59.0 kg
[~2020-06-04 12:39] MED LIST changes: +IBUPROFEN600 M1 ORAL
--- NOTE | 2020-06-04 13:39 | Emergency Room Report ---
History of Present Illness General Chief Complaint: Multiple Trauma/Fall Source: Medical Record, EMS (Flor Stewart) Present Illness HPI 49-year-old female with no known significant past medical history from streets here complaining of worsening left ankle pain after she tripped earlier today. Patient reports that she normally ambulates with a cane however she lost her cane and is requesting a new cane. Denies any head injury. Rates the pain 5 out of 10 without radiation treatments for intervention no bony tenderness noted. Pain appears to be chronic at this time. Denies any low back pain, saddle paresthesia, urinary bowel incontinence. Patient also reports that she is very hungry and she is interested in list of homeless shelters. Denies chest pain, shortness of breath, headache and dizziness. Denies taking any pain medication, denies taking any blood thinners. (Flor Stewart) Allergies: Coded Allergies: NO KNOWN ALLERGIES (Unverified Allergy, Unknown, 05/16/15) COVID-19 Screening Contact w/high risk pt: No Recent Travel to affected area: No Experienced COVID-19 symptoms?: No COVID-19 Testing performed FORESTRY WORKERS: No (Flor Stewart) Patient History Past Medical History: see triage record Past Surgical History: unable to obtain Pertinent Family History: unable to obtain Now: No Reviewed Nursing Documentation: PMH: Agreed; PSxH: Agreed (Flor Stewart) Nursing Documentation-PMH Past Medical History: No History, Except For Hx Hypertension: Yes Hx Asthma: Yes History Of Psychiatric Problem: Yes - substance abuse (Flor Stewart) Review of Systems All Other Systems: negative except mentioned in HPI (Flor Stewart) Physical Exam Vital Signs Date Time Temp Pulse Resp B/P (MAP) Pulse Ox O2 Delivery O2 Flow Rate FiO2 06/04/20 12:36 98.4 127 16 131/91 (104) 95 Room Air Sp02 EP Interpretation: reviewed, normal General Appearance: no apparent distress, alert, GCS 15, non-toxic Head: normocephalic, atraumatic Eyes: bilateral eye normal inspection, bilateral eye PERRL ENT: hearing grossly normal, normal pharynx, no angioedema, normal voice Neck: full range of motion, supple/symm/no masses Respiratory: chest non-tender, lungs clear, normal breath sounds, speaking full sentences Cardiovascular #1: regular rate, rhythm, no edema Cardiovascular #2: 2+ femoral (R), 2+ femoral (L), 2+ dorsalis pedis (R), 2+ dorsalis pedis (L) Gastrointestinal: normal bowel sounds, non tender, soft, non-distended, no guarding, no rebound Musculoskeletal: back normal, normal range of motion, no calf tenderness, pelvis stable, non-tender Neurologic: alert, motor strength/tone normal, oriented x3, sensory intact, responsive, speech normal Psychiatric: judgement/insight normal, memory normal, mood/affect normal, no suicidal/homicidal ideation Skin: no rash Lymphatic: no adenopathy (Flor Stewart) Medical Decision Making PA Attestation All diagnoses and treatment plans were reviewed and discussed with my supervising physician Dr. Finn Homeless Attestation The treating physician has assessed and agrees that patient is medically stable for outpatient dispositon (Flor Stewart) Diagnostic Impression: Primary Impression: Ankle sprain ER Course 49-year-old female with no known significant past medical history from [facility] here complaining of worsening left ankle pain after she tripped earlier today. Patient reports that she normally ambulates with a cane however she lost her cane and is requesting a new cane. Denies any head injury. Rates the pain 5 out of 10 without radiation treatments for intervention no bony tenderness noted. Pain appears to be chronic at this time. Denies any low back pain, saddle paresthesia, urinary bowel incontinence. Patient also reports that she is very hungry and she is interested in list of homeless shelters. Denies chest pain, shortness of breath, headache and dizziness. Denies taking any pain medication, denies taking any blood thinners. Ddx considered but are not limited to: ankle sprain, ankle strain, ankle fracture, ankle contusion Vital signs: are WNL, pt. is afebrile H&PE are most consistent with: Ankle sprain ORDERS: ankle X-ray, Motrin ED INTERVENTIONS: Cane was provided, patient was provided with a list of homeless shelters, patient was given food DISCHARGE: At this time pt. is stable for d/c to home. Will provide printed patient care instructions, and any necessary prescriptions. Care plan and follow up instructions have been discussed with the patient prior to discharge. Gave a list of family clinics for patient to follow-up with, patient take medication as directed, if worsening symptoms return to the emergency room (Flor Stewart) Other X-Ray Diagnostic Results Other X-Ray Diagnostic Results : X-Ray ordered: Left ankle # of Views/Limited Vs Complete: 3 View Indication: Pain EP Interpretation: Yes PA Xray: Interpretation reviewed, by supervising MD, and agrees with findings. Interpretation: no dislocation, no soft tissue swelling, no fractures Impression: No acute disease Electronically Signed by: Flor Garcia PA-C (Flor Stewart) Other X-Ray Diagnostic Results : Electronically Signed by: Stone Larios documentation of Xray reviewed by me and is accurate, Ayush Finn MD (Ayush Finn MD) Last Vital Signs Date Time Temp Pulse Resp B/P (MAP) Pulse Ox O2 Delivery O2 Flow Rate FiO2 06/04/20 12:36 98.4 127 16 131/91 (104) 95 Room Air (Flor Stewart) Disposition: HOME, SELF-CARE Condition: Stable Scripts Ibuprofen* (MOTRIN*) 600 Mg Tablet 600 MG ORAL FOUR TIMES A DAY, #30 TAB 0 Refills Prov: Flor Stewart 06/04/20 Referrals: ELA POSADAS,REFERRING (PCP) Patient Instructions: Ankle Sprain, [id number] Additional Instructions: Take medication as directed, follow primary care provider, if worsening symptoms return to emergency Flor Stewart Jun 04, 2020 13:39 Ayush Finn MD Jun 04, 2020 22:54
[2020-06-04] MEDS ORDERED: IBUPROFEN600 M1 ORAL (14:06)
--- NOTE | 2020-06-04 14:21 | Diagnostic Imaging Report ---
EXAM: XR Left Ankle Complete, 3 or More Views CLINICAL HISTORY: TRAUMA TECHNIQUE: Frontal, lateral and oblique views of the left ankle. COMPARISON: None FINDINGS: Bones/joints: No displaced fracture or dislocation identified. Osteopenia. Ankle mortise is intact. Degenerative changes of the tarsometatarsal joints. Small posterior calcaneal spur. Ankle joint effusion. Probable amputation changes of the left first digit. Soft tissues: Soft tissue swelling. IMPRESSION: No displaced fracture or dislocation identified. If there is concern for abnormality in the forefoot, further evaluation could be performed with radiographs of the foot.
--- NOTE | 2020-06-04 14:55 | NUR ---
Homeless Discharge: Patient is being discharged from medical care. Awake, alert and oriented x3. After care instructions, including referral to community resources were given. Patient verbalized understanding of After care instructions; at this time patient does not request medications, equipment or placement. Patient signed patient consent in the medical record for patient destination upon discharge. Patient ambulated out with all personal belongings with provided cane.
[2020-06-04 16:19] VITALS: BP 131/91
== END 2020-06-04 15:00 | disposition home or self-care (01) ==
LOC: EDBD 12:39 → EMR 13:20
DX: S93.402A Sprain of unspecified ligament of left ankle, initial encounter (principal); I10 Essential (primary) hypertension; J45.909 Unspecified asthma, uncomplicated; F19.10 Other psychoactive substance abuse, uncomplicated; W18.40XA Slipping, tripping and stumbling without falling, unspecified, initial encounter; Y93.01 Activity, walking, marching and hiking; Y92.9 Unspecified place or not applicable
CPT/HCPCS: 73610; Z7502; 99283

== ENCOUNTER 2020-07-26 19:03 | Emergency (ER) | payer MEDICAID ==
[~2020-07-26] VITALS: Ht 165.1 cm; Wt 49.9 kg
--- NOTE | 2020-07-26 19:24 | NUR ---
ED Nurse Note: Pt walked in from home, she walks with a steady gait using a walker, vitals are stable on RA. She states that she has abdominal pain, n/v/d for 3-4 days. She speaks in full sentances and her breathing is even and unlabored. She is resting eyes closed, requesting food and milk.
[2020-07-26 19:27] VITALS: BP 120/75
[2020-07-26 19:59] LABS: BASOPHILS % (AUTO) 0.5 % (0.0-2.0); EOSINOPHILS % (AUTO) 2.8 % (0.0-3.0); HEMATOCRIT 39.8 % (37.0-47.0); HEMOGLOBIN 11.9 G/DL (12.0-16.0); LYMPHOCYTES % (AUTO) 32.2 % (20.0-45.0); MEAN CORPUSCULAR VOLUME 91 FL (80-99); MONOCYTES % (AUTO) 5.7 % (1.0-10.0); NEUTROPHILS % (AUTO) 58.8 % (45.0-75.0); PLATELET COUNT 385 K/UL (150-450); RED BLOOD COUNT 4.39 M/UL (4.20-5.40); RED CELL DISTRIBUTION WIDTH 16.1 % (11.6-14.8); WHITE BLOOD COUNT 5.4 K/UL (4.8-10.8)
[2020-07-26 20:09] LABS: APPEARANCE,URINE SLIGHTLY CLOUDY; BILIRUBIN, URINE NEGATIVE (NEGATIVE); COLOR,URINE PALE YELLOW; GLUCOSE, URINE (UA) NEGATIVE (NEGATIVE); KETONES,URINE NEGATIVE (NEGATIVE); LEUKOCYTE ESTERASE ,URINE 3+ (NEGATIVE); NITRITE,URINE NEGATIVE (NEGATIVE); PH,URINE 5 (4.5-8.0); PROTEIN,URINE 1+ (NEGATIVE); UROBILINOGEN,URINE NORMAL MG/DL (0.0-1.0)
[2020-07-26 20:14] LABS: ANION GAP 6 mmol/L (5-15); BLOOD UREA NITROGEN 21 mg/dL (7-18); CALCIUM 9.1 MG/DL (8.5-10.1); CARBON DIOXIDE 29 MMOL/L (21-32); CHLORIDE 107 MMOL/L (98-107); CREATININE 0.8 MG/DL (0.55-1.30); POTASSIUM 3.8 MMOL/L (3.5-5.1); SODIUM 142 MMOL/L (136-145)
[2020-07-26 20:17] LABS: ALANINE AMINOTRANSFERASE 20 U/L (12-78); ALBUMIN/GLOBULIN RATIO 0.8 (1.0-2.7); ALKALINE PHOSPHATASE 113 U/L (46-116); ASPARTATE AMINO TRANSFERASE 16 U/L (15-37); BILIRUBIN,TOTAL 0.1 MG/DL (0.2-1.0)
[2020-07-26] MEDS ORDERED: cefTRIAXone 1 GM in NS 55 ML IVPB ONE (20:45)
--- NOTE | 2020-07-26 20:47 | Emergency Room Report ---
History of Present Illness General Chief Complaint: Abdominal Pain Source: Patient Present Illness HPI This patient is a homeless female. She has a history of AIDS/HIV. She states that she has nowhere to sleep and she does not feel well. She states that she has nowhere else to go and so she came here for help. She is requesting evaluation by a marriage and family social worker so she can find a correction. She states she hasn't been feeling well overall and has not had money to buy food. She states she needs somewhere to sleep/correction. Allergies: Coded Allergies: NO KNOWN ALLERGIES (Unverified Allergy, Unknown, 05/16/15) COVID-19 Screening Contact w/high risk pt: No Recent Travel to affected area: No Experienced COVID-19 symptoms?: No COVID-19 Testing performed TOP LIFT COMPRESSER: No Patient History Past Medical History: see triage record, HTN, COPD, HIV Social History: Reports: smoking; Denies: alcohol use, drug use Now: No Reviewed Nursing Documentation: PMH: Agreed; PSxH: Agreed Nursing Documentation-PMH Hx Hypertension: Yes Hx Asthma: Yes Review of Systems All Other Systems: negative except mentioned in HPI Physical Exam Vital Signs Date Time Temp Pulse Resp B/P (MAP) Pulse Ox O2 Delivery O2 Flow Rate FiO2 07/26/20 19:12 98.6 85 20 118/78 (91) 07/26/20 19:27 98 Room Air Sp02 EP Interpretation: reviewed, normal General Appearance: no apparent distress, alert, GCS 15, non-toxic, cachetic Head: normocephalic, atraumatic Eyes: bilateral eye normal inspection ENT: hearing grossly normal, normal pharynx, no angioedema, normal voice Neck: normal inspection, full range of motion Respiratory: chest non-tender, lungs clear, normal breath sounds, no re spiratory distress, no retraction, no accessory muscle use, speaking full sentences Cardiovascular #1: regular rate, rhythm, no edema Gastrointestinal: normal bowel sounds, non tender, soft, non-distended, no gua rding, no rebound Rectal: deferred Musculoskeletal: back normal, normal range of motion, gait/station normal, non- tender Neurologic: alert, motor strength/tone normal, oriented x3, sensory intact, responsive, speech normal Psychiatric: judgement/insight normal, memory normal, mood/affect normal, no suicidal/homicidal ideation Skin: normal color Medical Decision Making Diagnostic Impression: Primary Impression: UTI (urinary tract infection) ER Course This patient mainly presents for social reasons. She states that she needs correction. The patient is found to have a urinary tract infection. I did obtain basic labs to include CBC, CMP and urinalysis. Overall, patient's evaluation is benign. She was given IV fluids and IV antibiotics here in the emergency department. She will be allowed to board overnight in the emergency department with plans to see social work in the morning for possible correction placement. Laboratory Tests Test 07/26/20 19:50 07/26/20 20:03 White Blood Count 5.4 K/UL (4.8-10.8) Red Blood Count 4.39 M/UL (4.20-5.40) Hemoglobin 11.9 G/DL (12.0-16.0) L Hematocrit 39.8 % (37.0-47.0) Mean Corpuscular Volume 91 FL (80-99) Mean Corpuscular Hemoglobin 27.2 PG (27.0-31.0) Mean Corpuscular Hemoglobin Concent 30.0 G/DL (32.0-36.0) L Red Cell Distribution Width 16.1 % (11.6-14.8) H Platelet Count 385 K/UL (150-450) Mean Platelet Volume 6.6 FL (6.5-10.1) Neutrophils (%) (Auto) 58.8 % (45.0-75.0) Lymphocytes (%) (Auto) 32.2 % (20.0-45.0) Monocytes (%) (Auto) 5.7 % (1.0-10.0) Eosinophils (%) (Auto) 2.8 % (0.0-3.0) Basophils (%) (Auto) 0.5 % (0.0-2.0) Sodium Level 142 MMOL/L (136-145) Potassium Level 3.8 MMOL/L (3.5-5.1) Chloride Level 107 MMOL/L (98-107) Carbon Dioxide Level 29 MMOL/L (21-32) Anion Gap 6 mmol/L (5-15) Blood Urea Nitrogen 21 mg/dL (7-18) H Creatinine 0.8 MG/DL (0.55-1.30) Estimated Glomerular Filtration Rate > 60 mL/min (>60) Glucose Level 111 MG/DL (74-106) H Calcium Level 9.1 MG/DL (8.5-10.1) Total Bilirubin 0.1 MG/DL (0.2-1.0) L Aspartate Amino Transferase (AST) 16 U/L (15-37) Alanine Aminotransferase (ALT) 20 U/L (12-78) Alkaline Phosphatase 113 U/L (46-116) Total Protein 6.8 G/DL (6.4-8.2) Albumin 3.0 G/DL (3.4-5.0) L Globulin 3.8 g/dL Albumin/Globulin Ratio 0.8 (1.0-2.7) L Lipase 212 U/L (73-393) Urine Color Pale yellow Urine Appearance Slightly cloudy Urine pH 5 (4.5-8.0) Urine Specific [place] 1.025 (1.005-1.035) Urine Protein 1+ (NEGATIVE) H Urine Glucose (UA) Negative (NEGATIVE) Urine Ketones Negative (NEGATIVE) Urine Blood 1+ (NEGATIVE) H Urine Nitrite Negative (NEGATIVE) Urine Bilirubin Negative (NEGATIVE) Urine Urobilinogen Normal MG/DL (0.0-1.0) Urine Leukocyte Esterase 3+ (NEGATIVE) H Urine RBC 2-4 /HPF (0 - 2) H Urine WBC 15-20 /HPF (0 - 2) H Urine Squamous Epithelial Cells Moderate /LPF (NONE/OCC) H Urine Bacteria Moderate /HPF (NONE) H Last Vital Signs Date Time Temp Pulse Resp B/P (MAP) Pulse Ox O2 Delivery O2 Flow Rate FiO2 07/26/20 19:27 88 18 Room Air 07/26/20 19:27 98.7 120/75 98 Status: improved Disposition: HOME, SELF-CARE Condition: Improved Referrals: ELA POSADAS,REFERRING (PCP) Mellisa Cabezas DO Jul 26, 2020 20:46
[2020-07-26] MEDS ORDERED: NITROFURANTOIN100 M2 ORAL (20:48)
--- NOTE | 2020-07-26 20:50 | NUR ---
ED Nurse Note: Per ER MD, pending social work and placement
[2020-07-26 21:55] VITALS: BP 116/70
--- NOTE | 2020-07-26 23:27 | NUR ---
ED Nurse Note: Gave pt alf resources, mental health resources, appropriate clothes, a sandwhich, juices. Pt wants to sit in the lobby. ER ok to dc to lobby until pt wants to leave. pt walks with a steady gait with walker, vitals are steady, removed IV.
[2020-07-26 23:30] VITALS: BP 112/85
== END 2020-07-26 23:30 | disposition home or self-care (01) ==
LOC: EMR 19:27
DX: N39.0 Urinary tract infection, site not specified (principal); I10 Essential (primary) hypertension; J44.9 Chronic obstructive pulmonary disease, unspecified; Z21 Asymptomatic human immunodeficiency virus [HIV] infection status; Z59.0 Homelessness; F19.11 Other psychoactive substance abuse, in remission; Z72.89 Other problems related to lifestyle
CPT/HCPCS: 36415; 80053; 81003; 83690; 85025; 87086; 96361; 96365; J0696; J2405; Z7502; 99284

== ENCOUNTER 2020-08-31 22:55 | Emergency (ER) | payer MEDICAID ==
[~2020-08-31] VITALS: Ht 162.6 cm; Wt 49.9 kg
[~2020-08-31 22:55] MED LIST changes: +NITROFURANTOIN100 M2 ORAL
[2020-08-31 23:03] VITALS: BP 146/81
--- NOTE | 2020-08-31 23:20 | NUR ---
pt aox3. sleeping on the cart. v/s stbale. pt in no distress.
[2020-08-31] MEDS ORDERED: IMODIUM MULTI-1 EACH PO (23:33)
--- NOTE | 2020-08-31 23:33 | Emergency Room Report ---
History of Present Illness General Chief Complaint: Diarrhea Source: Patient, Medical Record, EMS Present Illness HPI This is a 49-year-old female with a history of cocaine abuse. She presents with chief complaint of diarrhea. She said is been ongoing for a week. No fever chills but no nausea no vomiting. Similar symptom this month where she was seen at another hospital. Complaint of generalized body pain. Pain is 9 out of 10. No other complaint. Nothing made it better. Nothing made it worse. Allergies: Coded Allergies: NO KNOWN ALLERGIES (Unverified Allergy, Unknown, 08/31/20) COVID-19 Screening Contact w/high risk pt: No Recent Travel to affected area: No Experienced COVID-19 symptoms?: Yes COVID-19 Testing performed SWITCH INSPECTOR: No Patient History Past Medical History: see triage record, old chart reviewed Past Surgical History: other Pertinent Family History: none Social History: Reports: smoking, drug use Now: No Immunizations: other Reviewed Nursing Documentation: PMH: Agreed; PSxH: Agreed Nursing Documentation-PMH Past Medical History: No Stated History Hx Hypertension: Yes Hx Asthma: Yes Review of Systems Eye: Denies: eye pain, blurred vision ENT: Denies: ear pain, nose congestion, throat swelling Respiratory: Denies: cough, shortness of breath Cardiovascular: Denies: chest pain, palpitations Gastrointestinal: Reports: abdominal pain, diarrhea; Denies: nausea, vomiting Musculoskeletal: Denies: back pain, joint pain Skin: Denies: rash Neurological: Denies: headache, numbness Endocrine: Denies: increased thirst, increased urine Hematologic/Lymphatic: Denies: easy bruising All Other Systems: negative except mentioned in HPI Physical Exam Vital Signs Date Time Temp Pulse Resp B/P (MAP) Pulse Ox O2 Delivery O2 Flow Rate FiO2 08/31/20 22:56 97.9 98 16 146/81 (102) 99 Room Air Vitals unremarkable Sp02 EP Interpretation: reviewed, normal General Appearance: well appearing, no apparent distress, alert, thin Head: normocephalic, atraumatic Eyes: bilateral eye PERRL, bilateral eye EOMI ENT: hearing grossly normal, normal pharynx Neck: full range of motion, supple, no meningismus Respiratory: chest non-tender, lungs clear, normal breath sounds Cardiovascular #1: regular rate, rhythm, no murmur Gastrointestinal: normal bowel sounds, non tender, no mass, no organomegaly, no bruit, non-distended Musculoskeletal: back normal, normal range of motion, gait/station normal Psychiatric: mood/affect normal Medical Decision Making Diagnostic Impression: Primary Impression: Diarrhea Qualified Codes: R19.7 - Diarrhea, unspecified Additional Impression: Cocaine abuse ER Course Patient complained of diarrhea but she has no diarrhea since she has been here. She is actually eating candy. She does have a history of cocaine abuse. Her diarrhea may be withdrawal symptoms. Not suicidal or homicidal. Vitals are stable. Will discharge home. Last Vital Signs Date Time Temp Pulse Resp B/P (MAP) Pulse Ox O2 Delivery O2 Flow Rate FiO2 08/31/20 23:03 97.9 86 16 146/81 99 Room Air Status: improved Disposition: HOME, SELF-CARE Condition: Stable Scripts Loperamide Hcl/Simethicone (IMODIUM MULTI-SYMPTOM REL CPLT) 1 Each Tablet 1 EACH PO BID, #30 TAB Prov: Phillip Lind MD 08/31/20 Referrals: ELA POSADAS,REFERRING (PCP) Patient Instructions: Diarrhea, Adult Additional Instructions: Abstain from drugs and alcohol. Follow-up with your doctor in 7 days. Return if worse. Phillip Lind MD Aug 31, 2020 23:33
--- NOTE | 2020-08-31 23:39 | NUR ---
pt given and understands discharge instructions. pt v/s stable. pt in no distress.
== END 2020-08-31 23:42 | disposition home or self-care (01) ==
LOC: EDUNIT# 22:55 → EDBD 22:55 → EMR 23:08
DX: R19.7 Diarrhea, unspecified (principal); F14.10 Cocaine abuse, uncomplicated; I10 Essential (primary) hypertension; J45.909 Unspecified asthma, uncomplicated; F17.200 Nicotine dependence, unspecified, uncomplicated
CPT/HCPCS: 99283

== ENCOUNTER 2020-09-01 07:19 | Emergency (ER) | payer MEDICAID ==
[~2020-09-01] VITALS: Ht 165.1 cm; Wt 54.4 kg
[~2020-09-01 07:19] MED LIST changes: +IMODIUM MULTI-1 EACH PO
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
[2020-09-01 07:33] VITALS: BP 120/80
--- NOTE | 2020-09-01 07:34 | NUR ---
Came to er complaints of left leg pain seen in er yesterday dischrged home but patient slept in the lobby of the er came back with complaints of leg pain waiting for md anton
[2020-09-01] MEDS ORDERED: Acetaminophen 500mg (ES) tab ORAL ONE (07:45)
[2020-09-01 08:27] VITALS: BP 120/80
--- NOTE | 2020-09-01 08:29 | NUR ---
food juice and medicine provided clothings given walker provided to walk fpr support food to take home given discharge with instruction to follow up with pmd
== END 2020-09-01 08:31 | disposition home or self-care (01) ==
LOC: EMR 07:41
DX: G89.29 Other chronic pain (principal); M79.605 Pain in left leg; F14.90 Cocaine use, unspecified, uncomplicated; I10 Essential (primary) hypertension; J45.909 Unspecified asthma, uncomplicated; Z59.0 Homelessness
CPT/HCPCS: 99282